=== PATIENT | female | born 1950 | race Caucasian/White ===

== ENCOUNTER → 2016-04-16 | Outpatient (CLI) | payer MEDICARE, MEDICAID ==
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
== END ==
LOC: M PAIN 11:20
PROVIDERS: ATTEND Anesthesiology
DX: G89.29 Other chronic pain (principal); M79.1 Myalgia; M54.5 Low back pain; M25.559 Pain in unspecified hip; J44.9 Chronic obstructive pulmonary disease, unspecified; F41.9 Anxiety disorder, unspecified; I49.9 Cardiac arrhythmia, unspecified; E73.9 Lactose intolerance, unspecified; M81.0 Age-related osteoporosis without current pathological fracture; K21.9 Gastro-esophageal reflux disease without esophagitis; K59.00 Constipation, unspecified; M19.90 Unspecified osteoarthritis, unspecified site; F43.10 Post-traumatic stress disorder, unspecified; R39.81 Functional urinary incontinence; Z88.5 Allergy status to narcotic agent; Z88.8 Allergy status to other drugs, medicaments and biological substances; Z88.6 Allergy status to analgesic agent; F17.200 Nicotine dependence, unspecified, uncomplicated; Z79.891 Long term (current) use of opiate analgesic; Z79.899 Other long term (current) drug therapy; Z92.21 Personal history of antineoplastic chemotherapy

== ENCOUNTER → 2016-05-26 | Outpatient (CLI) | payer MEDICARE, MEDICAID ==
--- NOTE | 2016-05-27 06:33 | REP ---
PET/CT: History: Staging of disorder of the right lung. History of right breast cancer status post chemotherapy, mastectomy. Nodules found in the right lung on CT angiography done for hemoptysis. CT study is compared dated May 07, 2016 [facility]. TECHNIQUE: 70 minutes following the intravenous injection of a 8.1 mCi dose of F-18 FDG, three-dimensional PET scintigraphy is acquired from the skull base to the proximal thighs. Triplanar noncontrast CT scanning is acquired through the same anatomic range for attenuation correction, and image registration with scan parameters optimized to minimize radiation exposure to the patient. PET scintigraphy and CT datasets were fused and displayed on a workstation with multiplanar and projection display capability. PET/CT Findings: There is a tiny focus of moderately hypermetabolic uptake along the anterior and inferior aspect of the mandible just to the left of midline. This subcentimeter focus has maximum standard uptake value of 11.2. There is no discernible soft tissue mass here on the accompanying CT or on soft tissue neck CT study from May 07, 2016. The finding is of uncertain significance. There is a small delores focus of mildly hypermetabolic uptake within the left parotid gland just below the tip of the mastoid on the left side. Maximum SUV value here is 5.2 in this 1 cm delores focus. No other abnormal hypermetabolic head and neck uptake is seen. There is a small air-fluid level in the right maxillary sinus. The patient status post right mastectomy. No abnormal chest wall uptake is seen. There is faint mildly hypermetabolic uptake in the pulmonary nodule seen in the right posterior lung gutter. Maximum SUV value here is 2.5. This nodule measures 0.9 cm in greatest diameter. At the level of the recently observed right middle lobe nodule, there is very faint nonhypermetabolic FDG uptake, maximum SUV value is 1.1. This is only a 5 mm nodule. There are some subsegmental atelectatic changes in the posterior aspect of the right lower lobe. No other suspicious hypermetabolic uptake is seen in the chest. No abnormal adrenal uptake is seen. No abnormal hepatic or splenic uptake is observed. In the abdomen and pelvis, there is normal hepatic, splenic, gastrointestinal, and genitourinary FDG accumulation. Study is otherwise unremarkable. Impression: Several foci of hypermetabolic uptake including a delores focus in the left parotid gland, a focus of uncertain etiology at the anterior aspect of the mandible on the left, and in two right-sided lung nodules, right middle lobe and right lower lobe. Malignancy cannot be excluded. Signed by Eriberto Ventura MD 05/27/2016 10:12 A
== END ==
LOC: M RAD 11:09
PROVIDERS: ATTEND Physician Assistant
DX: R91.8 Other nonspecific abnormal finding of lung field (principal); R93.7 Abnormal findings on diagnostic imaging of other parts of musculoskeletal system; Z85.3 Personal history of malignant neoplasm of breast; Z92.21 Personal history of antineoplastic chemotherapy
CPT/HCPCS: 78815; A9552

== ENCOUNTER → 2016-06-10 | Outpatient (CLI) | payer MEDICARE, MEDICAID ==
[~2016-06-10] MED LIST: ACETAMINOPHEN 325 MG TAB As Ordered ONE; LIDOCAINE 1% MDV 20ML VIAL As Ordered ONE
--- NOTE | 2016-06-10 13:30 | REP ---
PA chest x-ray: Single view. History: Patient status post CT guided needle biopsy of the lung. Pneumothorax seen on post biopsy CT images. Comparison chest CT May 07, 2016. Findings: There is a small right apical pneumothorax with a 2.5 cm air collection in the right lung apex. The right lung is otherwise clear. There is a levoconvex curvature in the thoracic spine. Cardiomediastinal silhouette is unremarkable and unchanged from the CT. There is a left subclavian vein Vfnoye-R-Iufa catheter. Oxygen tubing is seen. Impression: Small post biopsy pneumothorax on the right. Dr. Escobedo has been contacted and will follow the patient with us. Follow-up chest x-ray will be obtained 2 hours. Signed by Eriberto Ventura MD 06/10/2016 05:36 P
--- NOTE | 2016-06-10 13:52 | REP ---
CHEST X-RAY: Single view. HISTORY: Follow-up exam small right-sided pneumothorax post CT guided needle biopsy. FINDINGS: There has been no change in the interval since the prior study in the small right-sided pneumothorax. The 2.5 cm collection of right apical pleural air persists. The patient's post procedure discomfort has resolved. She denies increased shortness of breath. IMPRESSION: No change in the size of the small right-sided pneumothorax. Signed by Eriberto Ventura MD 06/10/2016 05:37 P
--- NOTE | 2016-06-10 16:35 | REP ---
CT GUIDED RIGHT MIDDLE LOBE LUNG BIOPSY: The procedure was performed under the direct supervision of Dr. Ventura. The patient has a history of a 5 mm nodule in the right middle lobe seen on a previous CT scan from [facility] performed on 05/07/2016. The risks and benefits of the procedure were explained to the patient and informed consent was obtained. The right middle lobe lung nodule was localized using CT guidance. The skin was prepped and draped in a sterile fashion. 1% Xylocaine was used as a local anesthetic. Using CT guidance a 19/20-gauge coaxial needle biopsy system was inserted and advanced into the nodule, however, the patient's lung collapsed moving the nodule away from the needle. A biopsy sample was unable to be obtained. A short tubing and 60 mL syringe was connected to the cannula and as much air as possible was aspirated from the pleural space. Images demonstrate some improvement of the right pneumothorax. At this point, the patient was placed on 2 liters of 02 via nasal cannula. Her O2 saturations were 97% on 2 liters. The patient complained of pain at a 7 out of 10. Chest x-ray performed immediately after the procedure shows a small post biopsy pneumothorax on the right. Dr. Escobedo was contacted at the time of the procedure. A chest x-ray performed two hours later shows no change in the size of the pneumothorax. The patient stated that her pain had gotten better. After the appropriate amount of monitored convalescences, the patient was discharged from the department. The patient will have a followup chest x-ray tomorrow. Reviewed by ZARIA Feliciano 06/11/2016 02:10 PEdited and Signed by Eriberto Ventura MD 06/11/2016 05:02 Joaquin
== END ==
LOC: M RADPRO 08:15
PROVIDERS: ATTEND Internal Medicine Medical Oncology
DX: R91.1 Solitary pulmonary nodule (principal); J95.811 Postprocedural pneumothorax; J44.9 Chronic obstructive pulmonary disease, unspecified; M81.0 Age-related osteoporosis without current pathological fracture; K21.9 Gastro-esophageal reflux disease without esophagitis; F41.9 Anxiety disorder, unspecified; Z85.3 Personal history of malignant neoplasm of breast; Z88.5 Allergy status to narcotic agent; Z79.899 Other long term (current) drug therapy

== ENCOUNTER → 2016-07-26 | Day surgery (SDC) | payer MEDICARE, MEDICAID ==
[~2016-07-26] VITALS: Ht 168.9 cm; Wt 59.9 kg
[~2016-07-26] MED LIST changes: -ACETAMINOPHEN 325 MG TAB As Ordered ONE; +ADV250INH INH; +BENA25CA4 PO; +BUSP1TAB PO; +CETACAINE SPRAY 20GM (FLOOR STOCK) As Ordered ONE; +EPINEPHrine 1MG/10ML SYRINGE 1.5IN As Ordered ONE; +FLUO40CA PO; +GLYCOPYRROLATE INJ 0.2 MG/ML 2 ML VIAL As Ordered ONE; +LETR2.5T PO; -LIDOCAINE 1% MDV 20ML VIAL As Ordered ONE; +LIDOCAINE 1% SDV INJ 30 ML VIAL As Ordered ONE; +LIDOCAINE 2% INJ 100 MG/5 ML SDV (FOR ANES.) As Ordered ONE; +LIDOCAINE VISCOUS 2% SOLN 15ML UDC As Ordered ONE; +LORA-376 PO; +LR 1,000 ML IV ONE; +LR 1,000 ML IV SCH; +MEGE20TA PO; +MIDAZOLAM INJ 2 MG/2 ML VIAL (J2250) As Ordered ONE; +MIRA3350 PO; +NEOSTIGMINE 1MG/ML 5 ML SYRINGE (J2710) As Ordered ONE; +NORCO, ANEXSIA 5/325MG TABLET (HYDROcodone/ACETAMINOPHEN) PO PRN; +OMEP40CA2 PO; +ONDANSETRON 4MG/2ML VIAL (J2405) As Ordered ONE; +PHENYLephrine HCL 500 MCG/5 ML (100MCG/ML) SYRINGE (J2370) As Ordered ONE; +PHILCAP3 PO; +PROA1AER INH; +PROPOFOL 200 MG/20 ML VIAL As Ordered ONE; +ROCURONIUM BROMIDE 50 MG/5 ML VIAL As Ordered ONE; +SUCR1SS PO; +THROMBIN SOLN 5,000 UNITS VIAL As Ordered ONE; +TOVI8TAB PO; +TRAM50TA2 PO; +TRAZ50TA4 PO; +TYLE650T35 PO; +dexameTHASONE 4 MG/ML 1ML VIAL (J1100) As Ordered ONE; +ePHEDrine SULFATE 25 MG/5 ML(5MG/ML) SYRINGE As Ordered ONE; +fentaNYL 100 MCG/2 ML INJECTION (J3010) As Ordered ONE; +fentaNYL 100 MCG/2 ML INJECTION (J3010) IV PRN
--- NOTE | 2016-07-26 14:10 | RO ---
DATE OF PROCEDURE: 07/26/2016 PREOPERATIVE DIAGNOSES: Abnormal chest CT, right middle lobe nodule, right lower lobe nodule. POSTOPERATIVE DIAGNOSES: Abnormal chest CT, right middle lobe nodule, right lower lobe nodule. FINDINGS: Of a smoker airways with banding and pitting. PROCEDURES: Bronchoscopy with electromagnetic navigation. SURGEON: Ranjan Girard DO TECHNICAL PROPOSAL WRITER: None ANESTHESIA: Was general. SPECIMENS OBTAINED: 1. Right lower lobe fine-needle aspiration (FNA) GenCut. 2. Right lower lobe transbronchial biopsies. 3. Right lower lobe cytobrush. 4. Right middle lobe cytobrush. 5. Right middle lobe transbronchial biopsies. 6. Right middle lobe bronchoalveolar lavage. There was minimal hemorrhage. ESTIMATED BLOOD LOSS: 2-3 mL. None replaced. No drains. No observed complications. DESCRIPTION OF PROCEDURE: After informed consent was reviewed with the patient in the preoperative area, she was brought back operating room (OR) #6, which is a pre-mapped room. Time-out was performed with two patient identifiers, identifying correct site, correct procedure. General anesthesia was initiated with an 8.0 endotracheal tube. The case was then handed over to mt. Cetacaine spray was used to anesthetize the airway. Time-out was again performed with two patient identifiers, identifying correct site, correct procedure. The 1T180 bronchoscope was then introduced through the endotracheal tube. The trachea was midline. Kriss was sharp. Right and left mainstem bronchus was normal, except for minimal amounts of mucus. RB1 through 10 was inspected without endobronchial lesions. RBI was normal. There was minimal banding and pitting. Left mainstem bronchus was normal. LB1 through 10 was inspected. No evidence of endobronchial lesions. No hemorrhage with normal mucosa, except for banding and pitting. The scope was then retracted into the endotracheal tube. Automatic registration was then performed. This was confirmed with fluoroscopy. Target #2 was navigated to first in the right lower lobe posterior segment. This was within 4 mm. Transbronchial biopsies were taken, followed by a GenCut FNA. Additional transbronchial biopsies were obtained. Cytobrush was then performed. After adequate sampling, the sheath was removed from this area. The LG guide was reinserted. I navigated to the right middle lobe lesion, which was target #1. Proximity was within 6 mm closer with expiration than with inspiration. Transbronchial biopsies were taken of this lesion, followed by a cytobrush. After adequate sampling, bronchoalveolar lavage was performed of this segment. Sheath was removed with the lavage process. After sampling was completed, all airways were suctioned. Hemostasis was assured. The bronchoscope was then removed. The patient is in the recovery area awaiting postbronchoscopy chest x-ray. [facility]
--- NOTE | 2016-07-26 14:44 | REP ---
PORTABLE CHEST: AP portable view of the chest is performed. There is no pneumothorax status post bronchoscopy. Left Mediport catheter is seen with the tip in the superior vena cava. Bilateral interstitial opacities are unchanged since the prior exam of 06/18/2016. Cardiomediastinal silhouette is unchanged. IMPRESSION: No pneumothorax. Signed by Shahid Vanessa MD 07/26/2016 05:44 P
[2016-07-26 15:15] VITALS: BP 117/58
== END | disposition home or self-care (01) ==
LOC: M SDC 10:02
PROVIDERS: ATTEND Internal Medicine Pulmonary Disease
DX: R91.8 Other nonspecific abnormal finding of lung field (principal); K21.9 Gastro-esophageal reflux disease without esophagitis; R29.898 Other symptoms and signs involving the musculoskeletal system; M12.9 Arthropathy, unspecified; M81.0 Age-related osteoporosis without current pathological fracture; F41.9 Anxiety disorder, unspecified; F32.9 Major depressive disorder, single episode, unspecified; G43.909 Migraine, unspecified, not intractable, without status migrainosus; J45.909 Unspecified asthma, uncomplicated; J44.9 Chronic obstructive pulmonary disease, unspecified; Z88.5 Allergy status to narcotic agent; Z88.6 Allergy status to analgesic agent; Z88.8 Allergy status to other drugs, medicaments and biological substances; Z91.011 Allergy to milk products; Z91.048 Other nonmedicinal substance allergy status; Z79.899 Other long term (current) drug therapy; Z86.19 Personal history of other infectious and parasitic diseases; Z90.710 Acquired absence of both cervix and uterus; Z85.3 Personal history of malignant neoplasm of breast; Z92.21 Personal history of antineoplastic chemotherapy; Z87.891 Personal history of nicotine dependence
CPT/HCPCS: 31623; 31624; 31627; 31628; 31629; 71010; 76000; 88104; 88108; 88172; 88173; 88305; 88313; J1100; J2250; J2370; J2405; J2710; J3010

== ENCOUNTER → 2016-08-16 | Outpatient (CLI) | payer MEDICAID, MEDICARE ==
[~2016-08-16] MED LIST changes: -CETACAINE SPRAY 20GM (FLOOR STOCK) As Ordered ONE; -EPINEPHrine 1MG/10ML SYRINGE 1.5IN As Ordered ONE; -GLYCOPYRROLATE INJ 0.2 MG/ML 2 ML VIAL As Ordered ONE; +LIDOCAINE 1% MDV 20ML VIAL As Ordered ONE; -LIDOCAINE 1% SDV INJ 30 ML VIAL As Ordered ONE; -LIDOCAINE 2% INJ 100 MG/5 ML SDV (FOR ANES.) As Ordered ONE; -LIDOCAINE VISCOUS 2% SOLN 15ML UDC As Ordered ONE; -LR 1,000 ML IV ONE; -LR 1,000 ML IV SCH; -MIDAZOLAM INJ 2 MG/2 ML VIAL (J2250) As Ordered ONE; -NEOSTIGMINE 1MG/ML 5 ML SYRINGE (J2710) As Ordered ONE; -NORCO, ANEXSIA 5/325MG TABLET (HYDROcodone/ACETAMINOPHEN) PO PRN; -ONDANSETRON 4MG/2ML VIAL (J2405) As Ordered ONE; -PHENYLephrine HCL 500 MCG/5 ML (100MCG/ML) SYRINGE (J2370) As Ordered ONE; -PROPOFOL 200 MG/20 ML VIAL As Ordered ONE; -ROCURONIUM BROMIDE 50 MG/5 ML VIAL As Ordered ONE; -THROMBIN SOLN 5,000 UNITS VIAL As Ordered ONE; -dexameTHASONE 4 MG/ML 1ML VIAL (J1100) As Ordered ONE; -ePHEDrine SULFATE 25 MG/5 ML(5MG/ML) SYRINGE As Ordered ONE; -fentaNYL 100 MCG/2 ML INJECTION (J3010) As Ordered ONE; -fentaNYL 100 MCG/2 ML INJECTION (J3010) IV PRN
--- NOTE | 2016-08-16 10:36 | REP ---
Limited CT study of the mandible without contrast: History: Recent PET/CT showed a focal area of increased PET activity in the left anterior mandible. Biopsy requested. Pre biopsy evaluation. Comparison PET/CT study May 26, 2016. Comparison soft tissue neck CT study [facility], May 07, 2016. CT findings: The CT acquisition today confirms the presence of an 8 mm intraparotid lymph node on the left side corresponding to one of the areas of increased uptake on PET/CT. The slices through the mandible however show no evidence of bony mandibular destruction or erosive change or periosteal reaction. There is no overlying soft tissue mass and this focus on PET/CT is felt to be false-positive. No abnormality on physical exam. Accordingly, the proposed biopsy of the left mandible is cancelled. We will proceed with ultrasound-guided FNA of the left parotid lesion. Signed by Eriberto Ventura MD 08/16/2016 01:08 P
--- NOTE | 2016-08-16 11:57 | REP ---
Soft-tissue ultrasound left neck: History: Localized swelling mass lump. PET avid node or nodule in the left parotid gland on PET/CT dated May 26, 2016. Findings: Pre-procedure sonography confirms the presence of a 0.7 x 1.2 x 0.8 cm hypoechoic nodule in the left parotid gland. This exhibits a hilar pattern of Doppler flow. This is felt to correspond with the target seen on recent PET/CT study. Ultrasound guided fine needle aspiration biopsy will proceed. Signed by Eriberto Ventura MD 08/16/2016 01:09 P
--- NOTE | 2016-08-16 17:52 | REP ---
ULTRASOUND GUIDED LEFT PAROTID NODULE BIOPSY: The procedure was performed under the direct supervision of Dr. Ventura. The patient has a history of 0.7 x 1.2 x 0.8 cm hypoechoic nodule in the left parotid gland seen on a previous ultrasound performed earlier today. The risks and benefits of the procedure were explained to the patient and informed consent was obtained. A left parotid nodule was localized using ultrasound guidance. The skin was prepped and draped in a sterile fashion. 1% lidocaine was used as local anesthetic. Using ultrasound guidance, six fine needle aspirations were obtained using 25-gauge needles. The patient tolerated the procedure well and there were no immediate complications. After the appropriate amount of monitored convalescence the patient was discharged from the department. Reviewed by ZARIA Feliciano 08/17/2016 10:22 AEdited and Signed by Eriberto Ventura MD 08/17/2016 05:05 P
== END ==
LOC: M RADPRO 08:37
PROVIDERS: ATTEND Otolaryngology
DX: D11.0 Benign neoplasm of parotid gland (principal); Z88.5 Allergy status to narcotic agent; Z91.011 Allergy to milk products; Z88.8 Allergy status to other drugs, medicaments and biological substances; Z79.899 Other long term (current) drug therapy

== ENCOUNTER → 2016-11-10 | Outpatient (CLI) | payer MEDICARE ==
[~2016-11-10] MED LIST changes: -LETR2.5T PO; +LETR2.5T2 PO; -LIDOCAINE 1% MDV 20ML VIAL As Ordered ONE; -LORA-376 PO; +LORA0.5T11 PO; -MEGE20TA PO; +MEGE20TA3 PO; -PROA1AER INH; +PROAAER10 INH; +TRAZ50TA11 PO; -TRAZ50TA4 PO
[2016-11-10 14:33] LABS: INR 0.95
== END ==
LOC: M LAB 13:03
PROVIDERS: ATTEND Internal Medicine Pulmonary Disease
DX: R91.8 Other nonspecific abnormal finding of lung field (principal)

== ENCOUNTER → 2016-11-26 | Outpatient (CLI) | payer MEDICARE ==
[~2016-11-26] MED LIST changes: +LIDOCAINE 1% MDV 20ML VIAL As Ordered ONE
--- NOTE | 2016-11-26 17:43 | REP ---
Chest x-ray: Single PA view. History: Status post right lower lobe lung biopsy. Comparison study: 07/26/2016. Findings: A left-sided Yvdnix-L-Juuq catheter is noted in place. There is a hazy opacity at the biopsy site in the right lower hemithorax. There is no visible pneumothorax or hemothorax. Impression: No complication identified. Signed by Eriberto Ventura MD 11/30/2016 08:08 A
--- NOTE | 2016-11-26 19:27 | REP ---
CT GUIDED RIGHT MIDDLE LOBE LUNG BIOPSY: The procedure was performed under the direct supervision of Dr. Ventura. The patient has a history of a 5 mm nodule in the right middle lobe seen on a previous CAT scan from [facility] performed on 05/07/2016. This was shown to be hypermetabolic on a previous PET scan performed on 05/26/2016. The patient had an attempted right middle lobe lung biopsy on 06/10/2016 however the lung collapsed and the lesion fell away and a biopsy sample was unable to be obtained. The lesion in the right middle lobe had increased in size seen in a previous CAT scan from [facility] performed on 10/29/2016. The patient is referred for rebiopsy on the right middle lobe lesion. The risks and benefits of the procedure were explained to the patient and informed consent was obtained. The right middle lobe lung nodule was localized using CT guidance. The skin was prepped and draped in a sterile fashion. 1% Xylocaine was used as a local anesthetic. Using CT guidance a 19/20 coaxial needle biopsy system was inserted and then advanced into the nodule. 5 core biopsy samples were obtained. The patient tolerated the procedure well and there were no immediate complications. After the appropriate amount of monitored convalescence the patient was discharged from the department. Reviewed by ZARIA Feliciano 11/30/2016 09:13 AEdited and Signed by Eriberto Ventura MD 11/30/2016 04:37 P
== END ==
LOC: M RADPRO 09:30
PROVIDERS: ATTEND Internal Medicine Pulmonary Disease
DX: C78.01 Secondary malignant neoplasm of right lung (principal); C50.919 Malignant neoplasm of unspecified site of unspecified female breast; Z90.11 Acquired absence of right breast and nipple; Z91.048 Other nonmedicinal substance allergy status; Z88.5 Allergy status to narcotic agent; Z88.8 Allergy status to other drugs, medicaments and biological substances; Z91.011 Allergy to milk products; Z87.891 Personal history of nicotine dependence; Z79.899 Other long term (current) drug therapy

== ENCOUNTER → 2016-12-06 | Outpatient (CLI) | payer MEDICARE ==
[~2016-12-06] MED LIST changes: -LIDOCAINE 1% MDV 20ML VIAL As Ordered ONE
--- NOTE | 2016-12-17 16:38 | REP ---
DIAGNOSTIC MAMMOGRAM, 12/06/2016 WITH LEFT BREAST ULTRASOUND, 12/10/2016: Diagnostic mammogram left breast performed in multiple projections with additional spot compression views obtained. There is reportedly a palpable abnormality in the lower outer left breast which is marked on the skin with a triangular marker. Comparison made with multiple prior exams, the most recent of which is 09/25/2014 from [place], [place]. There is dense fibroglandular tissue throughout the left breast. I do not see evidence of a mass, architectural distortion or clustered microcalcifications. Real-time sonographic evaluation of the left breast performed at the site of the reported palpable abnormality between 4-o'clock and 6-o'clock. Dense fibroglandular tissue was seen with no cystic or solid nodule. IMPRESSION: ACR 2 benign. No mass or clustered microcalcifications in the left breast mammographically. However dense breast parenchyma limits the sensitivity of the mammogram. There is no mammographic or sonographic evidence of a mass at the site of the reported palpable abnormality in the region of 5-o'clock left breast. A negative mammogram and ultrasound should not deter biopsy if there is a clinically suspicious palpable mass present. Clinical correlation and followup is recommended. Recommend followup mammogram in one year. BI-RADS/ACR category 2 mammogram. Benign finding(s). Routine annual screening mammography (for women over age 40). This mammogram was interpreted with the aid of an FDA-approved computer-aided detection system. The patient states she/he had a clinical breast exam in November 2016. The patient letter being requested is M2. Signed by Shahid Vanessa MD 12/17/2016 07:24 P
== END ==
LOC: M RAD 10:10
PROVIDERS: ATTEND Internal Medicine Medical Oncology
DX: N63 Unspecified lump in breast (principal); C50.919 Malignant neoplasm of unspecified site of unspecified female breast

== ENCOUNTER → 2016-12-08 | Outpatient (CLI) | payer MEDICARE ==
--- NOTE | 2016-12-08 17:44 | REP ---
PET/CT: History: Restaging breast cancer. Comparison PET/CT study May 26, 2016. Comparison chest CT October 29, 2016. TECHNIQUE: 52 minutes following the intravenous injection of a 9.5 mCi dose of F-18 FDG, three-dimensional PET scintigraphy is acquired from the skull base to the proximal thighs. Triplanar noncontrast CT scanning is acquired through the same anatomic range for attenuation correction, and image registration with scan parameters optimized to minimize radiation exposure to the patient. PET scintigraphy and CT datasets were fused and displayed on a workstation with multiplanar and projection display capability. PET/CT Findings: The right breast is surgically absent. There is an Xglouj-I-Ohmh catheter noted via the left side. Today's PET/CT images demonstrate evidence of progression in the chest. There is a new focus of discernible but nonhypermetabolic uptake in a small, 5 mm nodule in the right upper lobe in a perivascular distribution. Maximum standard uptake value here is only 1.4, however, this is considered suspicious as it is a new finding. There is also new uptake in a 1 cm focus in the right inferior hilus suggesting a hilar lymph node. Maximum standard uptake value here is 3.2. The previously noted nodule in the posterior aspect of the costophrenic angle on the right in the lower lobe displays maximum standard uptake value today of 4.6. Previously this was 2.5. It measured 0.9 cm previously and measures 1.8 cm today. A little more proximal in the right lower lobe is a 2 cm hypermetabolic right lower lobe lung nodule with maximum standard uptake value 6.5 today. Previously, this was 1.0 cm in diameter on the July 09, [address] and was not felt to be hypermetabolic on previous PET although there is some discernible uptake visible in retrospect. The 1 cm right middle lobe nodule seen anteriorly demonstrates hypermetabolic uptake with maximum standard uptake value 3.7 today. Previously, this was not hypermetabolic, SUV 1.1. No abnormal abdominal or pelvic hypermetabolic uptake is seen. The previous scan showed a possible hypermetabolic focus adjacent to the mastoid tip in the left parotid gland. This is not apparent today. Impression: Evidence of metastatic disease in the right thorax with progression since the prior PET/CT study. Signed by Eriberto Ventura MD 12/09/2016 10:15 A
== END ==
LOC: M PLARAD 07:46
PROVIDERS: ATTEND Internal Medicine Pulmonary Disease
DX: C79.89 Secondary malignant neoplasm of other specified sites (principal); C50.919 Malignant neoplasm of unspecified site of unspecified female breast
CPT/HCPCS: 78815; A9552

== ENCOUNTER → 2016-12-10 | Outpatient (CLI) | payer MEDICARE ==
--- NOTE | 2016-12-17 16:38 | REP ---
DIAGNOSTIC MAMMOGRAM, 12/06/2016 WITH LEFT BREAST ULTRASOUND, 12/10/2016: Diagnostic mammogram left breast performed in multiple projections with additional spot compression views obtained. There is reportedly a palpable abnormality in the lower outer left breast which is marked on the skin with a triangular marker. Comparison made with multiple prior exams, the most recent of which is 09/25/2014 from [place], [place]. There is dense fibroglandular tissue throughout the left breast. I do not see evidence of a mass, architectural distortion or clustered microcalcifications. Real-time sonographic evaluation of the left breast performed at the site of the reported palpable abnormality between 4-o'clock and 6-o'clock. Dense fibroglandular tissue was seen with no cystic or solid nodule. IMPRESSION: ACR 2 benign. No mass or clustered microcalcifications in the left breast mammographically. However dense breast parenchyma limits the sensitivity of the mammogram. There is no mammographic or sonographic evidence of a mass at the site of the reported palpable abnormality in the region of 5-o'clock left breast. A negative mammogram and ultrasound should not deter biopsy if there is a clinically suspicious palpable mass present. Clinical correlation and followup is recommended. Recommend followup mammogram in one year. BI-RADS/ACR category 2 mammogram. Benign finding(s). Routine annual screening mammography (for women over age 40). This mammogram was interpreted with the aid of an FDA-approved computer-aided detection system. The patient states she/he had a clinical breast exam in November 2016. The patient letter being requested is M2. Signed by Shahid Vanessa MD 12/17/2016 07:24 P
== END ==
LOC: M RAD 15:02
PROVIDERS: ATTEND Internal Medicine Medical Oncology
DX: N63 Unspecified lump in breast (principal)

== ENCOUNTER → 2016-12-24 | Outpatient (CLI) | payer MEDICARE ==
--- NOTE | 2016-12-24 13:22 | REP ---
MR BRAIN WITHOUT AND WITH CONTRAST: HISTORY: Breast carcinoma. Several punctate areas of increased signal intensity on T2-weighted images are present in the periventricular and subcortical white matter. This represents small vessel ischemic disease. There is no intraparenchymal hemorrhage, infarct, mass, or midline shift. There is no abnormal enhancement. The ventricular system is normal in appearance. There is no extracerebral collection. Minimal mucosal thickening is present in the right maxillary sinus. IMPRESSION: Minimal small vessel ischemic disease. Signed by Jc Coughlin MD 12/24/2016 01:48 P
== END ==
LOC: M RAD 11:01
PROVIDERS: ATTEND Internal Medicine Medical Oncology
DX: C50.919 Malignant neoplasm of unspecified site of unspecified female breast (principal); C79.9 Secondary malignant neoplasm of unspecified site; R51 Headache; I73.9 Peripheral vascular disease, unspecified
CPT/HCPCS: 70553; A9576

== ENCOUNTER 2017-03-09 12:24 | Inpatient (IN) | payer MEDICARE ==
[~2017-03-09] VITALS: Ht 167.6 cm; Wt 65.3 kg
[2017-03-09] MEDS ORDERED: CODE30TA PO (12:46)
[2017-03-09] MEDS ORDERED: RANI150T PO (12:46)
[2017-03-09] MEDS ORDERED: SPIR1CAP INH (12:46)
[2017-03-09 13:09] LABS: BASO % 0.3 % (0.0-1.0); IMMATURE GRANULOCYTE % 0.4 % (0-0); LYMPH # 1.6 10^3/uL (1.5-4.5); MEAN CORPUSCULAR HEMOGLOBIN 33.5 pg (27.0-33.0); MEAN CORPUSCULAR HGB CONC 34.3 g/dl (32.0-36.5); MEAN CORPUSCULAR VOLUME 97.8 fl (80.0-96.0); MONO % 6.7 % (0.0-5.0); NEUTROPHILS % 81.6 % (36.0-66.0); PLATELET COUNT, AUTOMATED 274 10^3/uL (150-450); RED CELL DISTRIBUTION WIDTH 13.5 % (11.5-14.5); WHITE BLOOD COUNT 14.7 10^3/uL (4.0-10.0)
[2017-03-09 13:50] LABS: ALBUMIN 3.2 GM/DL (3.2-5.2); ALT/SGPT 18 U/L (12-78); ANION GAP 8 MEQ/L (8-16); AST/SGOT 11 U/L (7-37); BILIRUBIN,DIRECT 0.1 MG/DL (0.0-0.2); BILIRUBIN,TOTAL 0.4 MG/DL (0.2-1.0); BLOOD UREA NITROGEN 9 MG/DL (7-18); CALCIUM LEVEL 7.6 MG/DL (8.8-10.2); CARBON DIOXIDE LEVEL 25 MEQ/L (21-32); CHLORIDE LEVEL 102 MEQ/L (98-107); GLOMERULAR FILTRATION RATE > 60.0 (>45); GLUCOSE, FASTING 111 MG/DL (80-110); MAGNESIUM LEVEL 2.1 MG/DL (1.8-2.4); PHOSPHORUS LEVEL 2.3 MG/DL (2.5-4.9); POTASSIUM SERUM 3.7 MEQ/L (3.5-5.1); SODIUM LEVEL 135 MEQ/L (136-145); TOTAL PROTEIN 6.1 GM/DL (6.4-8.2)
[2017-03-09 14:05] LABS: MICROSCOPIC INDICATED? MAN YES (NO)
[2017-03-09 14:08] LABS: ALKALINE PHOSPHATASE 63 U/L (45-117); FREE T4 1.42 NG/DL (0.76-1.46)
[2017-03-09 14:13] LABS: BACTERIA, URINE LARGE AMOUNT; SQUAMOUS EPITHELIAL CELL URINE SMALL AMOUNT /hpf (SMALL AMT)
[2017-03-09 14:14] LABS: HYALINE CAST, URINE NONE SEEN /lpf (0-1); MICROSCOPIC EXAM PERFORMED
[2017-03-09] MEDS ORDERED: AZITHROMYCIN INJ 500 MG, VIAL MATE ADAPTER 1 EACH in D5W 250 ML IV ONE (14:15)
[2017-03-09] MEDS ORDERED: NS 500 ML IV ONE (14:15)
[2017-03-09] MEDS ORDERED: CEFTRIAXONE SOD 1 GM in APPROPRIATE DILUENT 1 EA IV ONE (14:15)
--- NOTE | 2017-03-09 14:36 | REP ---
Chest x-ray: Two views. History: Cough and fever. Comparison study: November 26, 2016. Findings: There is a new infiltrate in the left lower lobe posteriorly consistent with pneumonia. The right lung is essentially clear with some linear interstitial fibrosis at its base. There is an Doqalx-W-Brmn catheter in place via the left subclavian vein region with its tip in the expected location of the superior vena cava. A moderate pectus excavatum deformity is seen on lateral radiograph. Heart is not enlarged. Pulmonary vasculature is not increased. Impression: Left lower lobe infiltrate consistent with pneumonia. Signed by Eriberto Ventura MD 03/09/2017 02:47 P
[2017-03-09] MEDS ORDERED: LORA1TAB12 PO (14:47)
[2017-03-09] MEDS ORDERED: BUSP10TA PO (14:47)
[2017-03-09] MEDS ORDERED: LevoFLOXacin IV 750 MG in APPROPRIATE DILUENT 1 EA IV SCH (15:00)
[2017-03-09] MEDS ORDERED: ONDANSETRON 4MG/2ML VIAL (J2405) IV PRN (15:00)
[2017-03-09] MEDS ORDERED: MIRALAX *UNIT DOSE* 17GM PACKET PO PRN (15:15)
[2017-03-09] MEDS ORDERED: DOCUSATE SODIUM 100 MG CAP PO PRN (15:15)
[2017-03-09] MEDS ORDERED: diphenhydrAMINE 25 MG CAP PO PRN (15:15)
[2017-03-09] MEDS: LORazepam 1 MG TAB PO SCH ×2 (16:00→22:35)
[2017-03-09] MEDS: SUCRALFATE SUSP 1GM/10ML UD PO SCH ×2 (17:30→22:35)
--- NOTE | 2017-03-09 17:30 | HPE ---
DATE OF ADMISSION: 03/09/2017 PRIMARY CARE PROVIDER: Dr. Landis ONCOLOGIST: Dr. Oconnor CATH LAB RADIOLOGICAL TECHNOLOGIST: Dr. Girard CHIEF COMPLAINT: Fever, cough. HISTORY OF PRESENT ILLNESS: This is a 66-year-old female with a past medical history significant for right breast cancer diagnosed in 2012, status post chemotherapy with recurrence of right breast cancer in 2014, status post chemotherapy and mastectomy with Qbjgve-X-Atos placement in 2014, had been in her usual state of health until she was found to have recurrent metastatic breast cancer to the right thorax diagnosed in November 2016 by fine needle aspiration biopsy of a right lung nodule showing metastatic poorly differential adenocarcinoma with breast as the primary with ER, ID staining negative, HER2 is negative. The patient had been undergoing chemotherapy since November and is due to have six months of chemotherapy. She is currently on her third month when she presented to the emergency room with complaints of fever, cough on and off since . The patient has been having white productive cough and chills, chronic headaches. The patient had been exposed to her grandson on with upper respiratory infection. She has had a 3 pound weight loss for the past 2 weeks despite having a decent appetite. The patient's last chemotherapy was [address] Oconnor, at which time it was decided to stop chemotherapy until the patient is improved with her functional status. The patient presents to the emergency room for evaluation. She was afebrile with temperature of 99, white count was elevated at 14,000. She was found to have a left lower lobe pneumonia and admitted under the hospitalist service. Due to her chronic immunocompromised state, the patient is being covered for healthcare-associated pneumonia and risk for possible pseudomonas infection, double covered with Zosyn and Levaquin. The patient otherwise denies any dysuria, urgency, frequency, chest pain, tightness. Denies any shortness of breath. She has had increased fatigue and weakness but no gait abnormalities. The hospitalist service was called to admit for left lobe pneumonia in an immunocompromised patient. PAST MEDICAL HISTORY: 1. Metastatic breast cancer to the right lung, recurrence from 2012 adenocarcinoma. 2. Chronic obstructive pulmonary disease (COPD). 3. Anxiety. 4. Constipation. 5. Lactose intolerance. 6. Chronic back pain. 7. Osteoarthritis. 8. Osteoporosis. 9. Posttraumatic stress disorder (PTSD). 10. Gastroesophageal reflux disease (GERD). ALLERGIES: CODEINE causing pruritus. MORPHINE causes pruritus. LAMICTAL causing vomiting. ASPIRIN causing vomiting. PAST SURGICAL HISTORY: 1. Ovarian procedure in 1972. 2. Ganglionic cyst in 1994. 3. Lumpectomy of the right breast in 2012 with chemotherapy. 4. Mastectomy right breast in 2014 with chemotherapy and Pzmwge-W-Lkfk placement in 2014. 5. Fine needle aspiration biopsy on 11/26/2016. 6. Fine needle aspiration biopsy with cytology 08/16/2016. FAMILY HISTORY: Mother and father both . Father in his 80s, of pneumonia. Mother in her 70s with Parkinson's. SOCIAL HISTORY: She lives with her daughter. 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 DO NOT RESUSCITATE, DO NOT INTUBATE. Previously smoked cigarettes. No alcohol use. REVIEW OF SYSTEMS: As per history of present illness. 12-point system otherwise negative. PHYSICAL EXAMINATION: Temperature 99, pulse 80, respiratory rate 18, blood pressure 103/56, 95% on 2 liters nasal cannula. GENERAL: The patient appears older than her stated age. She has some alopecia from recent chemotherapy. She appears pale. No respiratory distress or use of respiratory accessory muscles. No icterus. No jaundice. Able to speak in full sentences. Fluent speech. No conversational dyspnea. Pupils are round and reactive. Extraocular muscles are intact. Dry mucous membranes. No jugular venous distention (JVD), thyromegaly or cervical lymphadenopathy. LUNGS: Diminished with crackles at the left base. Left subclavian Infuse-A- Port noted. Right breast mastectomy surgical scars, well healed. HEART: S1, S2. Sinus rhythm. ABDOMEN: Soft, nontender, nondistended. Positive bowel sounds. EXTREMITIES: No cyanosis, clubbing or any pitting edema. White count 14.7, hemoglobin 10, hematocrit 30, platelet count 274. 81% neutrophils. Sodium 135, potassium 3.7, chloride 102, bicarbonate 25, BUN 9, creatinine 0.6, glucose 111, lactic acid 1.2, calcium 7.6, phosphorous 2.3, magnesium 2.1, total bilirubin 0.4, direct bilirubin 0.1, AST 11, ALT 18, alkaline phosphatase 63, total CK 53, MB fraction 1, troponin less than 0.02, BNP 1117, total protein 6.1, albumin 3.2, TSH 0.188, Free T4 1.42. Microbiology: Respiratory panel, strep screen, two sets of blood cultures, methicillin resistant Staphylococcus aureus (MRSA) screen are pending. Urinalysis shows 1 to 3 WBCs, large amount of bacteria, negative nitrites. IMAGING STUDIES: Chest x-ray with left lower lobe infiltrate consistent with pneumonia. Jzbilt-X-Dczw in place via left subclavian vein. ASSESSMENT AND PLAN: This is a 66-year-old female with a past medical history of invasive ductal carcinoma with chemotherapy in 2012 with right lumpectomy, right breast mastectomy in 2014, Sfybqj-P-Dyeb placement in 2014, chronic back pain, chronic obstructive pulmonary disease (COPD), anxiety, recurrent metastatic breast cancer to the right lung and undergoing chemotherapy with plans for six months of chemotherapy starting in November. The patient presents to the emergency room with fever, cough and chills, found to have a left lower lobe pneumonia. The patient will be admitted as an inpatient for two midnights and assigned to Dr. Serra for the following issues: 1. Sepsis secondary to left lower lobe pneumonia. The patient has a respiratory rate of 21 and white count of 14.7. She will be given coverage for Gram- negative infection due to recent chemotherapy and will be covered for possible pseudomonas with Zosyn and Levaquin, double coverage, until sputum culture is obtained, at which point, the patient will be deescalated with her antibiotics. Respiratory panel, influenza A and B, urine Legionella, urine streptococcal antigen, sputum culture still pending. Blood culture has been obtained and patient did receive ceftriaxone and azithromycin given by the emergency room physician. 2. Recurrent metastatic breast cancer to the right lung, currently undergoing chemotherapy, which is postponed due to active infection. The patient had received 3 months of chemotherapy with plans for 3 more months of chemotherapy with Dr. Oconnor. 3. Anemia, most likely due to chronic disease and chronic inflammation. We will check iron studies and stool for blood. No acute indication for red blood cell transfusion. 4. History of COPD. As needed nebulizers. The patient appears to be compensated. 5. History of chronic back pain. The patient has seen Dr. Ryan in the past. May need pain management if the patient's pain is not well controlled. 6. Osteoporosis and osteoarthritis, chronic. 7. Posttraumatic stress disorder (PTSD), chronic. 8. Reflux, chronic. 9. Deep vein thrombosis (DVT) prophylaxis with Lovenox subcutaneously. CODE STATUS: The patient has signed a Medical Orders for Life Sustaining Treatment (MOLST) form documenting DO NOT RESUSCITATE, DO NOT INTUBATE. She does not have a healthcare proxy at this time. The patient will be assigned to Dr. Violet Serra at 7:00 p.m. on 03/09/2017, hospitalist service. DENISE
[2017-03-09] MEDS: PIPERACILLIN/TAZOBACTAM SOD 3.375 GM in APPROPRIATE DILUENT 1 EA IV SCH ×2 (17:52→23:40)
[2017-03-09] MEDS ORDERED: ENOXAPARIN 40 MG/0.4 ML SYRINGE (J1650) SC SCH (18:00)
[2017-03-09] MEDS ORDERED: traZODone 50 MG TAB PO SCH (21:00)
[2017-03-09] MEDS: busPIRone 10 MG TAB PO SCH (22:35)
[2017-03-09] MEDS: FLUoxetine 20 MG CAP PO SCH (22:35)
[2017-03-09] MEDS ORDERED: PREVNAR 13 VACCINE SYRINGE (CPT CODE:90670) IM SCH (23:45)
[2017-03-09] MEDS ORDERED: INFLUENZA VIRUS VACCINE HIGH DOSE 0.5 ML SYRINGE (90662) IM SCH (23:45)
[2017-03-09 23:47] VITALS: BP 111/58
[2017-03-09] MEDS: ACETAMINOPHEN TAB 650MG DOSE (2X325MG) PO PRN (23:57)
[2017-03-10] MEDS ORDERED: SODIUM CHLORIDE 0.9% INJ 10 ML SYR IV PRN (03:30)
[2017-03-10 04:42] VITALS: BP 108/62
--- NOTE | 2017-03-10 04:44 | ECGEPIP ---
Stationary ECG Study [facility] - ED Test Date: 2017-03-09 Pat Name: CHIDI AGUIRRE Department: Room: - Gender: F Conductor/Brakeman: sudha : 1950 Requested By: ROSINA Mills Order Number: [id number] Reading MD: Narendra Steve Measurements Intervals [place] Rate: 81 P: 8 NC: 160 QRS: 38 QRSD: 93 T: 19 QT: 406 QTc: 474 Interpretive Statements SINUS RHYTHM INCOMPLETE RIGHT BUNDLE BRANCH BLOCK NONSPECIFIC T-WAVE ABNORMALITY NO PRIORS FOR COMPARISON Electronically Signed On 03-10-2017 4:44:29 EST by Narendra Steve
[2017-03-10] MEDS: PIPERACILLIN/TAZOBACTAM SOD 3.375 GM in APPROPRIATE DILUENT 1 EA IV SCH (04:59)
[2017-03-10] MEDS: ACETAMINOPHEN TAB 650MG DOSE (2X325MG) PO PRN (05:12)
[2017-03-10 05:37] LABS: BASO % 0.3 % (0.0-1.0); EOS # 0.1 10^3/uL (0.0-0.50); EOS % 0.5 % (0.0-3.0); IMMATURE GRANULOCYTE % 0.6 % (0-0); LYMPH % 18.7 % (24.0-44.0); MEAN CORPUSCULAR HEMOGLOBIN 32.7 pg (27.0-33.0); MEAN CORPUSCULAR HGB CONC 32.9 g/dl (32.0-36.5); MEAN CORPUSCULAR VOLUME 99.3 fl (80.0-96.0); MONO # 0.9 10^3/uL (0.0-0.8); MONO % 8.5 % (0.0-5.0); NEUTROPHILS # 7.7 10^3/uL (1.8-7.7); NEUTROPHILS % 71.4 % (36.0-66.0); PLATELET COUNT, AUTOMATED 257 10^3/uL (150-450); RED CELL DISTRIBUTION WIDTH 13.5 % (11.5-14.5); WHITE BLOOD COUNT 10.7 10^3/uL (4.0-10.0)
[2017-03-10 06:09] LABS: ANION GAP 8 MEQ/L (8-16); BLOOD UREA NITROGEN 6 MG/DL (7-18); CALCIUM LEVEL 7.3 MG/DL (8.8-10.2); CARBON DIOXIDE LEVEL 26 MEQ/L (21-32); CHLORIDE LEVEL 105 MEQ/L (98-107); CREATININE FOR GFR 0.46 MG/DL (0.55-1.02); GLOMERULAR FILTRATION RATE > 60.0 (>45); GLUCOSE, FASTING 81 MG/DL (80-110); PERCENT SATURATION 10.6 % (13.2-45.0); POTASSIUM SERUM 3.6 MEQ/L (3.5-5.1); SODIUM LEVEL 139 MEQ/L (136-145); TOTAL IRON BINDING CAPACITY 227 UG/DL (250-450)
[2017-03-10 06:33] LABS: RETIC HEMOGLOBIN EQUIVALENT 28.4 pg (24-36); RETICULOCYTE % 1.9 % (0.5-1.5)
[2017-03-10 06:43] LABS: REASON FOR REVIEW COMPREHENSIVE REVIEW
[2017-03-10 07:36] VITALS: BP 112/63
[2017-03-10] MEDS ORDERED: TIOTROPIUM INHALER/CAPSULE (SPIRIVA) INH SCH (08:00)
[2017-03-10] MEDS: LORazepam 1 MG TAB PO SCH ×2 (08:18→09:25)
[2017-03-10] MEDS ORDERED: SODIUM CHLORIDE 0.9% INJ 10 ML SYR IV SCH (09:00)
[2017-03-10] MEDS ORDERED: OMEPRAZOLE 20 MG CAP PO SCH (09:00)
[2017-03-10] MEDS: SUCRALFATE SUSP 1GM/10ML UD PO SCH (09:24)
[2017-03-10] MEDS: busPIRone 10 MG TAB PO SCH (09:25)
[2017-03-10] MEDS: FLUoxetine 20 MG CAP PO SCH (09:25)
[2017-03-10] MEDS ORDERED: LEVO500T3 PO (10:22)
--- NOTE | 2017-03-10 18:09 | DSES ---
DATE OF ADMISSION: 03/09/2017 DATE OF DISCHARGE: 03/10/2017 (AGAINST MEDICAL ADVICE) DISCHARGE DIAGNOSIS: Zjufn-svcl-ggjoajbma pneumonia. SECONDARY DIAGNOSES: 1. Metastatic breast cancer. 2. Chronic obstructive pulmonary disease. 3. Anxiety. 4. Constipation. 5. Lactose intolerance. 6. Chronic back pain. 7. Osteoarthritis. 8. Osteoporosis. 9. Posttraumatic stress disorder. 10. Gastroesophageal reflux disease. HOSPITAL COURSE: The patient is a 66-year-old female who presented on March 09. She had recently stopped chemotherapy secondary to her debility. She normally follows with Dr. Oconnor. She presented to the emergency room, as she had been exposed to her grandson with upper respiratory infection. She for the last several days had been having fevers and cough. In the emergency room she was found to have a temperature of 99 and elevated white blood cell count. Chest x-ray was concerning for a left lower lobe pneumonia. She was admitted to the hospitalist service. There was concern for wmlrn-ekmm-mtndmoqbz bacteria given her recent chemotherapy and possible immunocompromised state. As soon as I came into the patient's room on 03/10/2017, she informed me that she wished to leave the hospital and signed out against medical advice. I did inform her that currently she as receiving intravenous (IV) antibiotics, which she would not be able to receive outside the hospital, and she was currently using supplemental oxygen, still exhibiting signs of sepsis.She said she was feeling better, I did inform her that leaving the hospital at this time without completing treatment or waiting for further culture data would be risking her life. She informed me that she had a good understanding of this and demonstrated that she was awake, alert, oriented times three and explained back to me the potential risks and demonstrated good understanding and informed me that she felt significantly better and would like to go home, and if I could prescribe an antibiotic from the pharmacy she would appreciate it. I informed her that it would be impossible to prescribe an antibiotic outside the hospital that would provide her the same care and improvement that she had been receiving inside the hospital, but I would do my best to ensure her best health, provide her with antibiotic. I did express on several occasions that she was risking her life and with possibility leaving the hospital against medical advice. She demonstrated good understanding of this and insisted on leaving the hospital. She declined physical exam and signed against medical advice (AMA) paperwork in my presence. She assured me she would followup with her primary care physician (PCP) as well as Dr. Oconnor. She has pre-existing DO NOT RESUSCITATE/DO NOT INTUBATE. At the time of the patient leaving [place], I recommend that she is not to be driving until followup and that her diet is as prior to admission, that she should return to the emergency room (ER) if her symptoms worsen. The only medication change is that I have sent a prescription for levothyroxine 500 mg daily for 10 days' supply to her pharmacy. Less than 30 minutes spent organizing as safe a disposition as the patient would allow me to. DENISE
[2017-03-12 15:11] LABS: ORGANISM ID Not indicated. (.); SPECIMEN SOURCE Urine (.)
== END 2017-03-10 10:22 | disposition left against medical advice (07) | DRG 194 ==
LOC: M ED 12:24 → M ED INP 14:59 → EEVIPCON 14:59 → UNDODISIN 15:00
PROVIDERS: ADMIT General Practice; ATTEND Internal Medicine
DX: J18.9 Pneumonia, unspecified organism (principal); C79.89 Secondary malignant neoplasm of other specified sites; C78.01 Secondary malignant neoplasm of right lung; Z66 Do not resuscitate; J44.9 Chronic obstructive pulmonary disease, unspecified; D63.0 Anemia in neoplastic disease; F41.9 Anxiety disorder, unspecified; K21.9 Gastro-esophageal reflux disease without esophagitis; E73.9 Lactose intolerance, unspecified; Z88.5 Allergy status to narcotic agent; Z88.6 Allergy status to analgesic agent; Z88.8 Allergy status to other drugs, medicaments and biological substances; Z92.21 Personal history of antineoplastic chemotherapy; Z90.11 Acquired absence of right breast and nipple; Z87.891 Personal history of nicotine dependence

== ENCOUNTER → 2017-03-23 | Outpatient (CLI) | payer MEDICARE ==
[~2017-03-23] MED LIST changes: -ADV250INH INH; -BENA25CA4 PO; -BUSP1TAB PO; -FLUO40CA PO; +GASTROGRAFIN SOLUTION 30ML (Q9963) As Ordered; +ISOVUE-370 76% 100ML VIAL (Q9967) As Ordered; -LETR2.5T2 PO; -LORA0.5T11 PO; -MEGE20TA3 PO; -MIRA3350 PO; -OMEP40CA2 PO; -PHILCAP3 PO; -PROAAER10 INH; -SUCR1SS PO; -TOVI8TAB PO; -TRAM50TA2 PO; -TRAZ50TA11 PO; -TYLE650T35 PO
== END ==
LOC: M RAD 15:03
DX: J98.4 Other disorders of lung (principal); R93.2 Abnormal findings on diagnostic imaging of liver and biliary tract; K80.20 Calculus of gallbladder without cholecystitis without obstruction; K57.90 Diverticulosis of intestine, part unspecified, without perforation or abscess without bleeding; R91.8 Other nonspecific abnormal finding of lung field; C50.919 Malignant neoplasm of unspecified site of unspecified female breast
CPT/HCPCS: Q9963

== ENCOUNTER → 2017-07-15 | Outpatient (CLI) | payer MEDICARE, OTHER | LOC: M RAD 12:52 | DX: C50.919 Malignant neoplasm of unspecified site of unspecified female breast (principal); J44.9 Chronic obstructive pulmonary disease, unspecified; I70.0 Atherosclerosis of aorta; N28.1 Cyst of kidney, acquired; K76.89 Other specified diseases of liver; K57.30 Diverticulosis of large intestine without perforation or abscess without bleeding | CPT/HCPCS: Q9963 ==